=== PATIENT | male | born 1965 | race Caucasian/White ===

== ENCOUNTER 2023-08-27 08:42 | Emergency (ER) | payer OTHER, SELFPAY ==
[2023-08-27 09:08] VITALS: BP 133/83
--- NOTE | 2023-08-27 09:50 | ED.GENMED ---
History of Present Illness
General
Chief Complaint: Musculo-Skeletal Complaint
Time Seen by Provider: 08/27/23 09:18
Travel History
Have you had any contact with someone who has COVID-19?: No
Do you have any symptoms of coronavirus? Fever > 100 degrees, chills, cough, shortness of breath, sore throat, loss of taste or smell, muscle aches, or headache?: No
History of Present Illness
History of Present Illness:
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 Symptoms reportedly began within 1 week of taking a
long car trip. Pain is intermittent and seems to be somewhat positional, last night had difficulty walking secondary to pain. No fevers, chills, lower extremity numbness.
Past History
Past History
ED Past Medical History: None
ED Past Surgical History: Orthopedic
Social History
Tobacco: Non-smoker
Alcohol: None
Drug: None
Personal:
Living: with family
Review of Systems
Review of Systems
Allergies reviewed?: Yes
All Other Systems: ROS reviewed and negative except as documented in HPI and ROS
Phy Exam
Physical Exam
Physical Exam:
GEN: Well appearing, NAD, WDWN
HEENT: Oral mucosa moist, no scleral icterus
Cardiac: Regular rate
Lung: No respiratory distress, no tachypnea
MSK: No gross deformity or injuries. Right hip and right knee range of motion normal in all steel, there is increased pain elicited with hip flexion. No lower extremity edema, no calf rigidity, negative Homans' sign on the right
Skin: Good color, no pallor or jaundice, no rashes
Neuro: AO x3, moves all extremities freely
Psych: Calm, cooperative
Course
Orders/Labs/Results
Orders:
Orders
08/27/23 09:50
Venous Doppler Lwr Ext Rt [US Periph Venous LOWER Ext RT] Urgent
Comment:
Reason For Exam: R calf pain hx of DVT
Vital Signs
Initial and Last Documented VS:
Initial Vital Signs
Temp Pulse Resp BP Pulse Ox
99.1 F 55 18 133/83 100
08/27/23 09:08 08/27/23 09:08 08/27/23 09:08 08/27/23 09:08 08/27/23 09:08
Last Documented Vital Signs
Temp Pulse Resp BP Pulse Ox
99.1 F 55 18 133/83 100
08/27/23 09:08 08/27/23 09:08 08/27/23 09:08 08/27/23 09:08 08/27/23 09:08
MDM/Problems Addressed
MDM/Problems Addressed:
No evidence of DVT on ultrasound. Exam is suggestive of soft tissue pathology such as IT band syndrome. Discussed supportive care and NSAID usage
*Critical Care Note
Total Time (30-74mins, 75-104mins- exclusive of procedures): Not Applicable
ED Attending Note
-
Portions of this chart may have been created with voice recognition software.� Occasional wrong word or��sound alike� substitutions may have occurred due to the inherent limitations of voice recognition software.
Discharge Plan
Departure
Patient Disposition: Home (Routine Discharge)
Date of Disposition: 08/27/23
Time of Disposition: 10:57
Patient with high blood pressure during this ER visit?: No
Discharge Problem:
Iliotibial band syndrome of right side
Instructions: Iliotibial Band Syndrome (DC)
Prescriptions:
New
diclofenac sodium 75 mg tablet,delayed release (DR/EC)
75 mg PO BID Qty: 20 0RF
No Action
apixaban [Eliquis] 5 MG tablet
10 mg PO DAILY Qty: 30 0RF
Rx Instructions:
Take 10mg BID for 7 days then followed by 5mg BID
doxycycline hyclate 100 MG capsule
100 mg PO Q12 Qty: 28 0RF
Referrals:
Andrew Knowles MD [Family Provider] -
Interventions
Interventions:
*Risk Screen - Suicide Last Done: 08/27/23 09:08
*General Assessment Last Done: 08/27/23 09:08
*Neglect/Abuse Screening Last Done: 08/27/23 09:08
*ED COVID-19 Vaccine History Last Done: 08/27/23 09:08
*Nursing Disposition Last Done: 08/27/23 11:11
ED-Musculoskeletal Assessment Last Done: 08/27/23 09:38
Discharge Date and Time
Discharge Date/Time: 08/27/23 11:11
Print Language: IRISH
--- NOTE | 2023-08-27 09:57 | ED TECH ---
LUDA placed call to mechanical design technician on-call @ [phone], no response. UC left message. Awaiting response.
== END 2023-08-27 11:11 | disposition home or self-care (01) ==
LOC: EMR 08:42
PROVIDERS: EMERGENCY PHYSICIAN Emergency Medicine; FAMILY PHYSICIAN Internal Medicine
DX: M76.31 Iliotibial band syndrome, right leg (principal); Z86.718 Personal history of other venous thrombosis and embolism
CPT/HCPCS: 99284; 93971